=== PATIENT | female | born 1965 | race Caucasian/White ===

== ENCOUNTER 2017-06-19 13:16 | Observation (INO) ==
[2017-06-19 14:43] LABS: Basophils % 0.6 % (0.0-0.8); Eosinophils # 0.1 10*3/uL (0.0-0.87); Eosinophils % 1.6 % (0.00-10.9); Hematocrit 38.3 VOL% (35.7-47.0); Immature Granulocytes % 1.2 %; Immature Granulocytes Absolute 0.08 #; Lymphocytes # 1.5 10*3/uL (1.4-4.0); Lymphocytes % 22.1 % (21.3-54.2); Mean Corpuscular HGB Conc 31.3 GM/DL (32-36); Mean Corpuscular Hemoglobin 28 PG (27-34); Mean Corpuscular Volume 87.6 FL (87-102); Mean Platelet Volume 9.5 FL (9.6-12.0); Monocytes # 0.3 10*3/uL (0.11-0.8); Monocytes % 4.2 % (1.7-12.7); Neutrophils # 4.9 10*3/uL (1.4-7.4); Neutrophils % 70.3 % (38.7-73.9); Platelet Count 327 T/CUMM (130-400); Red Blood Count 4.37 MC/CUMM (3.8-5.5); Red Cell Distribution Width 14.4 % (9.3-17.3); White Blood Count 6.9 T/CUMM (4-12)
[2017-06-19 14:54] LABS: PT Patient Result 10.1 SECS
[2017-06-19 15:13] LABS: Alanine Aminotransferase 16 U/L (13-56); Albumin 3.2 G/DL (3.4-5.0); Alkaline Phosphatase 91 U/L (45-117); Amylase 38 U/L (25-115); Aspartate Amino Transferase 19 U/L (0-37); Bilirubin,Total < 0.39 MG/DL (0.2-1.0); Blood Urea Nitrogen 15 MG/DL (7-18); Calcium 8.9 MG/DL (8.5-10.1); Glucose 124 MG/DL (74-106); Osmolality,Calculated 280.4 MOS/KG (273-304); Potassium 4.1 MMOL/L (3.5-5.1); Sodium 140 MMOL/L (136-145); Total Protein 6.9 G/DL (6.4-8.3); Troponin I Only < 0.015 NG/ML (0.00-0.045)
[2017-06-19] MEDS ORDERED: ACETAMINOPHEN 325 MG TABLET PO PRN (17:06)
[2017-06-19] MEDS ORDERED: ONDANSETRON 4 MG/2 ML VIAL IV PRN (17:06)
[2017-06-19] MEDS ORDERED: ZALEPLON 5 MG CAPSULE PO PRN (17:06)
[2017-06-19] MEDS ORDERED: GLUCAGON 1 MG VIAL IM PRN (17:06)
[2017-06-19] MEDS ORDERED: DEXTROSE 50% 25 GM/50 ML VIAL IV PRN (17:06)
[2017-06-19] MEDS ORDERED: NITROGLYCERIN SL 0.4 MG TABLET SL PRN (17:20)
[2017-06-19] MEDS ORDERED: tiZANidine 4 MG TABLET PO PRN (17:21)
[2017-06-19] MEDS ORDERED: traMADol 50 MG TABLET PO PRN (17:23)
[2017-06-19] MEDS: ENOXAPARIN 40 MG/0.4 ML SYRINGE SUBCUT SCH (21:11)
[2017-06-19] MEDS: DULoxetine 30 MG CAPSULE PO SCH (21:11)
[2017-06-19] MEDS: INSULIN GLARGINE 100 UNIT/ML SUBCUT SCH (21:12)
[2017-06-19] MEDS: CARVEDILOL 12.5 MG TABLET PO SCH (21:12)
[2017-06-20 02:58] LABS: Basophils % 0.6 % (0.0-0.8); Eosinophils # 0.1 10*3/uL (0.0-0.87); Eosinophils % 2.2 % (0.00-10.9); Hematocrit 36.8 VOL% (35.7-47.0); Hemoglobin 11.8 GM/DL (12.0-16.0); Immature Granulocytes % 1.6 %; Lymphocytes # 2.2 10*3/uL (1.4-4.0); Lymphocytes % 34.6 % (21.3-54.2); Mean Corpuscular HGB Conc 32.1 GM/DL (32-36); Mean Corpuscular Hemoglobin 28 PG (27-34); Mean Platelet Volume 9.6 FL (9.6-12.0); Monocytes # 0.2 10*3/uL (0.11-0.8); Monocytes % 3.8 % (1.7-12.7); Neutrophils # 3.6 10*3/uL (1.4-7.4); Neutrophils % 57.2 % (38.7-73.9); Platelet Count 320 T/CUMM (130-400); Red Blood Count 4.28 MC/CUMM (3.8-5.5); Red Cell Distribution Width 14.6 % (9.3-17.3); White Blood Count 6.3 T/CUMM (4-12)
[2017-06-20 03:23] LABS: Troponin I Only < 0.015 NG/ML (0.00-0.045)
[2017-06-20 03:30] LABS: Magnesium 2.1 MG/DL (1.8-2.4); Osmolality,Calculated 280.4 MOS/KG (273-304); Risk Ratio 4.4; Thyroid Stimulating Hormone 6.66 uIU/ml (0.358-3.74); VLDL CHOLESTEROL 64.6 MG/DL
[2017-06-20 03:40] LABS: Folate 6.8 NG/ML (5.4-24.0)
[2017-06-20 08:06] LABS: Apearance,Urine CLOUDY (Clear); Bilirubin,Urine Negative (Negative); Blood, Urine Negative (Negative); Glucose,Urine (UA) Negative (Negative); Ketones,Urine Negative (Negative); Mucus,Urine Occasional /LPF (Occasional); Nitrite,Urine Positive (Negative); Protein,Urine Negative; RBC,Urine 6 /HPF (0-4); Squamous Epithelial Cell,Urine Occasional /HPF (0-10); Urine Color Yellow (Yellow); Urine Specific Gravity 1.017 (1.001-1.035); Urine Urobilinogen < 2.0 EU/DL (0.2-1.0); WBC,Urine 152 /HPF (0-6)
[2017-06-20] MEDS: IRBESARTAN 150 MG TABLET PO SCH (08:48)
[2017-06-20] MEDS: OMEGA 3 ACID ETHYL ESTERS 1 GM CAPSULE PO SCH ×2 (15:58→21:46)
[2017-06-20] MEDS: LEVOFLOXACIN 500 MG TABLET PO SCH (15:58)
[2017-06-20] MEDS: ASPIRIN EC 325 MG TABLET PO SCH (15:59)
[2017-06-20] MEDS: PANTOPRAZOLE 40 MG TABLET PO SCH (15:59)
[2017-06-20] MEDS: CARVEDILOL 12.5 MG TABLET PO SCH ×2 (15:59→21:46)
[2017-06-20] MEDS: CETIRIZINE 10 MG TABLET PO SCH (15:59)
[2017-06-20] MEDS: ROSUVASTATIN 10 MG TABLET PO SCH (16:03)
[2017-06-20] MEDS: ENOXAPARIN 40 MG/0.4 ML SYRINGE SUBCUT SCH (21:46)
[2017-06-20] MEDS: DULoxetine 30 MG CAPSULE PO SCH (21:46)
[2017-06-20] MEDS: INSULIN GLARGINE 100 UNIT/ML SUBCUT SCH (21:47)
[2017-06-21] MEDS ORDERED: LEVOTHYROXINE 25 MCG TABLET PO SCH (06:30)
[2017-06-21] MEDS: PANTOPRAZOLE 40 MG TABLET PO SCH (08:11)
[2017-06-21] MEDS: ROSUVASTATIN 10 MG TABLET PO SCH (08:11)
[2017-06-21] MEDS: LEVOFLOXACIN 500 MG TABLET PO SCH (08:11)
[2017-06-21] MEDS: OMEGA 3 ACID ETHYL ESTERS 1 GM CAPSULE PO SCH (08:11)
[2017-06-21] MEDS: ASPIRIN EC 325 MG TABLET PO SCH (08:12)
[2017-06-21] MEDS: IRBESARTAN 150 MG TABLET PO SCH (08:12)
[2017-06-21] MEDS: CETIRIZINE 10 MG TABLET PO SCH (08:12)
[2017-06-21] MEDS: CARVEDILOL 12.5 MG TABLET PO SCH (08:12)
[2017-06-21 12:19] VITALS: BP 118/89
== END 2017-06-21 15:44 | disposition home or self-care (01) ==
LOC: N.EDINP 13:16 → N.ED 13:16 → N.TELES 19:06
PROVIDERS: ADMIT Hospitalist; ATTEND Hospitalist